=== PATIENT | male | born 1960 | race Caucasian/White ===

== ENCOUNTER 2017-04-09 03:52 | Emergency (ER) | payer MEDICAID ==
[~2017-04-09] VITALS: Ht 188 cm; Wt 75.5 kg
[2017-04-09] MEDS ORDERED: LISI-660 PO (04:09)
[2017-04-09] MEDS ORDERED: DOXA2TAB PO (04:09)
[2017-04-09 04:40] LABS: ANION GAP 4 mmol/L (8-16); CALCIUM, TOTAL 9.6 mg/dL (8.8-10.5); CARBON DIOXIDE 31 mmol/L (22-29); CHLORIDE 104 mmol/L (98-107); CREATININE 0.98 mg/dL (0.60-1.30); GLOMERULAR FILTR. RATE CALC > 60 mL/min (>60); GLUCOSE,RANDOM 115 mg/dL (70-110); POTASSIUM 4.8 mmol/L (3.5-5.1); SODIUM SERUM 139 mmol/L (136-145); UREA NITROGEN, BLOOD 14 mg/dL (7-18)
[2017-04-09 04:45] LABS: ALANINE AMINOTRANSFERASE 55 U/L (12-78); ALBUMIN 3.8 g/dL (3.4-5.0); ALKALINE PHOSPHATASE 112 U/L (46-116); ASPARTATE AMINOTRANSFERASE 35 U/L (15-37); BASOPHILS % (AUTO) 0.7 % (0.0-2.0); BILIRUBIN,TOTAL 0.3 mg/dL (0.1-1.0); EOSINOPHILS % (AUTO) 3.1 % (1.0-6.0); HEMATOCRIT 44.8 % (41-53); HEMOGLOBIN 15.5 g/dL (13.5-17.5); LIPASE 234 U/L (73-393); LYMPHOCYTES # (AUTO) 1.4 K/uL (1.0-4.8); LYMPHOCYTES % (AUTO) 22.4 % (22.0-44.0); MEAN CORPUSCULAR HEMOGLOBIN 31.4 pg (26.0-34.0); MEAN CORPUSCULAR HGB CONC 34.7 G/dL (31.0-37.0); MEAN CORPUSCULAR VOLUME 91 fL (80-100); MONOCYTES # (AUTO) 0.7 K/uL (0.1-1.0); MONOCYTES % (AUTO) 10.5 % (2.0-9.0); NEUTROPHILS % (AUTO) 63.3 % (40.0-70.0); PLATELET COUNT (AUTO) 239 K/uL (150-450); RED BLOOD CELL COUNT(AUTO) 4.94 MIL/uL (4.50-5.90); RED CELL DISTRIBUTION WIDTH 13.5 % (11.5-14.5); TOTAL PROTEIN, SERUM 7.8 g/dL (6.4-8.2)
[2017-04-09] MEDS ORDERED: KETOROLAC TROMETHAMINE 30 MG/ML VIAL IVP ONE (05:45)
[2017-04-09] MEDS ORDERED: SODIUM PHOS/SODIUM BIPHOS 133 ML ENEMA PR ONE (05:45)
[2017-04-09] MEDS ORDERED: SODIUM CHLORIDE 0.9% 1,000 ML IV ONE (05:45)
[2017-04-09] MEDS ORDERED: MAGNESIUM CITRATE 300 ML ORAL SOLUTION PO ONE (05:45)
[2017-04-09 06:40] LABS: APPEARANCE,URINE CLEAR (CLEAR); BILIRUBIN,URINE NEGATIVE (NEGATIVE); GLUCOSE, URINE (UA) NEGATIVE (NEGATIVE); KETONES,URINE NEGATIVE (NEGATIVE); LEUKOCYTE ESTERASE ,URINE NEGATIVE (NEGATIVE); NITRATE,URINE NEGATIVE (NEGATIVE); OCCULT BLOOD,URINE NEGATIVE (NEGATIVE); PROTEIN,URINE NEGATIVE (NEGATIVE); UROBILINOGEN,URINE 0.2 mg/dL (<=1.0)
[2017-04-09 07:11] VITALS: BP 147/91
== END 2017-04-09 08:15 | disposition home or self-care (01) ==
LOC: EMS 03:53
DX: K59.00 Constipation, unspecified (principal); I10 Essential (primary) hypertension; F17.210 Nicotine dependence, cigarettes, uncomplicated
CPT/HCPCS: 36415; 74018; 80053; 81003; 83690; 85025; 96361; 96374; 99285; J1885; J7030